=== PATIENT | male | born 1955 | race Caucasian/White ===

== ENCOUNTER → 2016-11-11 | Outpatient (CLI) | payer OTHER ==
[~2016-11-11] MED LIST: None at this Time
== END | disposition home or self-care (01) ==
LOC: STAR 12:38
PROVIDERS: ATTEND Orthopaedic Surgery
DX: Z01.818 Encounter for other preprocedural examination (principal); M17.12 Unilateral primary osteoarthritis, left knee
CPT/HCPCS: 81003; 87081; 93005

== ENCOUNTER 2016-11-17 15:00 | Inpatient (IN) | payer OTHER ==
[~2016-11-17] VITALS: Ht 182.9 cm; Wt 97.6 kg
[2016-11-22] MEDS ORDERED: VANCOMYCIN PMX 1GM/200ML 200 ML IV STA (10:03)
[2016-11-22] MEDS ORDERED: AMLO2.5T PO (10:08)
[2016-11-22] MEDS ORDERED: LIDOCAINE 1%, 2ML ONE (10:14)
[2016-11-22] MEDS ORDERED: hydrALAzine 20 MG/ML, 1ML IV PRN (10:30)
[2016-11-22] MEDS ORDERED: ALBUTEROL SULFATE 2.5 MG/3 ML NPPB PRN (10:30)
[2016-11-22] MEDS ORDERED: HYDROmorphone 1 MG/ML, 1ML IV PRN (10:30)
[2016-11-22] MEDS ORDERED: PROMETHAZINE 25 MG/ML, 1ML IV PRN (10:30)
[2016-11-22] MEDS ORDERED: METOPROLOL 1 MG/ML, 5ML IV PRN (10:30)
[2016-11-22] MEDS ORDERED: EPHEDRINE 50 MG/ML, 1ML IVPush PRN (10:30)
[2016-11-22] MEDS ORDERED: OXYcodone 5 MG/5 ML ORAL.SOL UDC PO PRN (10:30)
[2016-11-22] MEDS ORDERED: LIDOCAINE 1%, 2ML SQ PRN (10:30)
[2016-11-22] MEDS ORDERED: MEPERIDINE/PF 25MG/0.5ML IVPush PRN (10:30)
[2016-11-22] MEDS ORDERED: ACETAMINOPHEN 325 MG TABLET PO PRN (10:30)
[2016-11-22] MEDS ORDERED: LABETALOL 5MG/ML, 20ML IV PRN (10:30)
[2016-11-22] MEDS ORDERED: FENTANYL PF 100 MCG/2ML IV PRN (10:30)
[2016-11-22] MEDS ORDERED: ONDANSETRON 2MG/ML, 2ML IVPush PRN (10:30)
[2016-11-22] MEDS ORDERED: LIDOCAINE 0.5%-EPI 1:200K, 50ML ONE (10:52)
[2016-11-22] MEDS ORDERED: TRANEXAMIC ACID 100 MG/ML, 10ML ONE (10:52)
[2016-11-22] MEDS ORDERED: ROPIvacaine/PF 0.5%, 30 ML ONE (10:52)
[2016-11-22] MEDS ORDERED: LACTATED RINGERS 1,000 ML IV SCH (11:00)
[2016-11-22] MEDS ORDERED: FENTANYL PF 250 MCG/5ML ONE (12:10)
[2016-11-22] MEDS ORDERED: MIDAZOLAM 1 MG/ML, 2ML ONE ×2 (12:10→12:11)
[2016-11-22] MEDS ORDERED: PROPOFOL 10 MG/ML, 20ML ONE (13:24)
[2016-11-22] MEDS ORDERED: GLYCOPYRROLATE 0.2MG/1ML ONE (13:24)
[2016-11-22] MEDS ORDERED: DEXAMETHASONE 4 MG/ML, 1ML ONE (13:24)
[2016-11-22] MEDS ORDERED: ONDANSETRON 2MG/ML, 2ML ONE (13:24)
[2016-11-22] MEDS ORDERED: ROCURONIUM 10 MG/ML ONE (13:24)
[2016-11-22] MEDS ORDERED: NEOSTIGMINE 1 MG/ML, 10ML ONE (13:24)
[2016-11-22] MEDS ORDERED: CEFAZOLIN 1,000 MG ONE (13:24)
[2016-11-22] MEDS ORDERED: ONDANSETRON 4 MG TABLET PO PRN (13:30)
[2016-11-22] MEDS: HYDROcodone/APAP 10/325 MG TABLET PO SCH ×3 (13:30→20:28)
[2016-11-22] MEDS ORDERED: ACETAMINOPHEN 650 MG/20.3 ML UDC PO PRN (13:30)
[2016-11-22] MEDS ORDERED: DIAZEPAM 5 MG TABLET PO PRN (13:30)
[2016-11-22] MEDS ORDERED: morphine SULFATE 10 MG/ML, 1ML IV PRN (13:30)
[2016-11-22] MEDS ORDERED: PROMETHAZINE 12.5 MG SUPP PR PRN (13:30)
[2016-11-22] MEDS ORDERED: MAGNESIUM HYDROXIDE 8%, 30ML UDC PO PRN (13:30)
[2016-11-22] MEDS ORDERED: BISACODYL 10 MG SUPP PR PRN (13:30)
[2016-11-22] MEDS ORDERED: ONDANSETRON 2MG/ML, 2ML IV PRN (13:30)
[2016-11-22] MEDS ORDERED: SENNA/DOCUSATE TABLET PO PRN (13:30)
[2016-11-22] MEDS ORDERED: SCOPOLAMINE PATCH, 1.5MG PATCH.TD72 TD SCH (13:30)
[2016-11-22] MEDS ORDERED: ACETAMINOPHEN 650 MG/20.3 ML UDC ONE (15:55)
[2016-11-22] MEDS ORDERED: ACETAMINOPHEN 325 MG/10.15 ML UDC ONE (15:55)
[2016-11-22] MEDS ORDERED: OXYcodone 5 MG/5 ML ORAL.SOL UDC ONE (15:55)
[2016-11-22] MEDS: D5%-0.45% NACL 1,000 ML IV SCH ×2 (17:11→21:23)
[2016-11-22 18:52] VITALS: BP 159/78
[2016-11-22] MEDS: DOCUSATE 100 MG CAPSULE PO SCH (20:28)
[2016-11-22] MEDS: CEFAZOLIN PMX 2GM/50ML 50 ML IVPB SCH (21:48)
[2016-11-23 00:13] VITALS: BP 145/74
[2016-11-23] MEDS: HYDROcodone/APAP 10/325 MG TABLET PO SCH ×3 (00:25→11:29)
[2016-11-23 05:23] VITALS: BP 147/72
[2016-11-23] MEDS: D5%-0.45% NACL 1,000 ML IV SCH ×2 (05:23→13:23)
[2016-11-23] MEDS ORDERED: ASPIRIN 325 MG TABLET EC PO SCH (06:00)
[2016-11-23] MEDS: CEFAZOLIN PMX 2GM/50ML 50 ML IVPB SCH (06:15)
[2016-11-23 07:21] VITALS: BP 127/69
[2016-11-23] MEDS ORDERED: AMLODIPINE 2.5 MG TABLET PO SCH (09:00)
[2016-11-23] MEDS: DOCUSATE 100 MG CAPSULE PO SCH (09:04)
[2016-11-23] MEDS ORDERED: KETOROLAC 30 MG/1 ML IV SCH (13:30)
[2016-11-23 13:53] VITALS: BP 147/74
== END 2016-11-23 14:22 | disposition home or self-care (01) | DRG 470 ==
LOC: ORIP 11-22 09:47 → 4NOR 11-22 16:29 → DCLOUNGE 11-23 14:06
PROVIDERS: ADMIT Orthopaedic Surgery; ATTEND Orthopaedic Surgery
PROC: 0SPD04Z Removal of Internal Fixation Device from Left Knee Joint, Open Approach (ICD-10-PCS; 2016-11-22)
PROC: 3E0T3CZ (ICD-10-PCS; 2016-11-22)
PROC: 0SRD0J9 Replacement of Left Knee Joint with Synthetic Substitute, Cemented, Open Approach (ICD-10-PCS; principal; 2016-11-22 12:15)
DX: M17.12 Unilateral primary osteoarthritis, left knee (principal); E78.00 Pure hypercholesterolemia, unspecified; Z90.89 Acquired absence of other organs; Z89.012 Acquired absence of left thumb; Z91.040 Latex allergy status; Z91.048 Other nonmedicinal substance allergy status
CPT/HCPCS: 76000; J0690; J1100; J2250; J2405; J2704; J2710; J2795; J3010; J3370; J3490; J7120

== ENCOUNTER 2016-11-26 11:18 | Inpatient (IN) | payer OTHER ==
[~2016-11-26] VITALS: Ht 182.9 cm; Wt 95.7 kg
[~2016-11-26 11:18] MED LIST changes: +AMLO2.5T PO
[2016-11-26] MEDS ORDERED: ASPI-650 PO (11:51)
[2016-11-26] MEDS ORDERED: HYDR-3144 PO (11:51)
[2016-11-26 12:11] LABS: PATH.CAST-FLAG NOT PRESENT; SPERM-FLAG NOT PRESENT; SRC-FLAG NOT PRESENT; XTAL-FLAG NOT PRESENT; YLC-FLAG NOT PRESENT
[2016-11-26 12:44] LABS: HEMOGLOBIN 9.5 g/dL (13.7-18.0); WHITE BLOOD COUNT 9.5 x10^3/uL (3.4-10)
[2016-11-26 12:55] LABS: BLOOD UREA NITROGEN 36 mg/dL (7-18)
[2016-11-26] MEDS ORDERED: SODIUM CHLORIDE 0.9% 1,000 ML IV ONE (13:55)
[2016-11-26] MEDS ORDERED: SODIUM CHLORIDE FLUSH 10ML SYR IVF ONE (14:00)
[2016-11-26] MEDS ORDERED: SODIUM CHLORIDE FLUSH 10ML SYR IVF PRN (14:30)
[2016-11-26] MEDS ORDERED: HYDROcodone/APAP 10/325 MG TABLET PO PRN (15:00)
[2016-11-26] MEDS ORDERED: morphine SULFATE 10 MG/ML, 1ML IVPush PRN (15:00)
[2016-11-26] MEDS ORDERED: ONDANSETRON 2MG/ML, 2ML IVPush PRN (15:00)
[2016-11-26] MEDS ORDERED: ACETAMINOPHEN 325 MG TABLET PO PRN (15:00)
[2016-11-26] MEDS ORDERED: POLYETHYLENE GLYCOL 17 GM PACKET PO PRN (15:00)
[2016-11-26] MEDS ORDERED: DOCUSATE 100 MG CAPSULE PO PRN (15:00)
[2016-11-26] MEDS ORDERED: LABETALOL 5MG/ML, 20ML IVPush PRN (15:30)
[2016-11-26] MEDS ORDERED: hydrALAzine 20 MG/ML, 1ML IV PRN (15:30)
[2016-11-26] MEDS ORDERED: TAMSULOSIN 0.4 MG CAP.ER.24H ONE (15:32)
[2016-11-26] MEDS: TAMSULOSIN 0.4 MG CAP.ER.24H PO SCH (15:33)
[2016-11-26 20:00] VITALS: BP 152/74
[2016-11-26] MEDS: SODIUM CHLORIDE 0.9% 1,000 ML IV SCH (20:12)
[2016-11-27] MEDS ORDERED: TEMAZEPAM 15 MG CAPSULE PO PRN
[2016-11-27 03:15] VITALS: BP 152/82
[2016-11-27] MEDS: SODIUM CHLORIDE 0.9% 1,000 ML IV SCH (04:01)
[2016-11-27 05:28] LABS: BLOOD UREA NITROGEN 19 mg/dL (7-18)
[2016-11-27] MEDS: TAMSULOSIN 0.4 MG CAP.ER.24H PO SCH (08:05)
[2016-11-27 08:21] VITALS: BP 180/81
[2016-11-27] MEDS ORDERED: SENNA/DOCUSATE TABLET PO SCH (09:00)
[2016-11-27] MEDS ORDERED: ASPIRIN 325 MG TABLET EC PO SCH ×2 (09:00→21:00)
[2016-11-27 10:30] VITALS: BP 162/80
[2016-11-27] MEDS ORDERED: amlodipine PO (10:49)
[2016-11-27] MEDS ORDERED: TAMS-11 PO (13:33)
[2016-11-27 15:26] VITALS: BP 168/72
== END 2016-11-27 16:46 | disposition home or self-care (01) | DRG 699 ==
LOC: ED 12:49 → EDIP 14:04 → 3NE 16:40
PROVIDERS: ADMIT Family Medicine; ATTEND Family Medicine
DX: N13.9 Obstructive and reflux uropathy, unspecified (principal); N17.9 Acute kidney failure, unspecified; N13.30 Unspecified hydronephrosis; D64.9 Anemia, unspecified; I10 Essential (primary) hypertension; M19.90 Unspecified osteoarthritis, unspecified site; R31.0 Gross hematuria; Z82.3 Family history of stroke; Z82.49 Family history of ischemic heart disease and other diseases of the circulatory system; Z87.442 Personal history of urinary calculi
CPT/HCPCS: 36415; 51702; 74176; 80048; 81001; 82040; 83735; 85025; 99285; J7030

== ENCOUNTER 2020-12-24 18:50 | Emergency (ER) | payer OTHER ==
[~2020-12-24] VITALS: Ht 182.9 cm; Wt 95.7 kg
[~2020-12-24 18:50] MED LIST changes: -AMLO2.5T PO; +AMLO2.5T5 PO; +ASPI325T20 PO; +HYDR1TAB53 PO; +TAMS-11 PO; +amlodipine PO
[2020-12-24] MEDS ORDERED: PLEASE ENTER HEIGHT AND WEIGHT MC SCH (19:30)
[2020-12-24] MEDS ORDERED: DIPH,PERTUSS(ACELL),TET VAC/PF 0.5 ML IM-VACC ONE ×2 (19:30→23:02)
[2020-12-24] MEDS ORDERED: LIDOCAINE 1%, 10ML INFIL ONE (19:30)
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
--- NOTE | 2020-12-24 22:59 | NUR ---
ERP AT BEDSIDE
[2020-12-24] MEDS ORDERED: LIDOCAINE-MPF 1%, 5ML ONE (23:01)
[2020-12-24] MEDS ORDERED: CEPHALEXIN 500 MG CAPSULE ONE (23:17)
[2020-12-24 23:30] VITALS: BP 182/88
[2020-12-24] MEDS ORDERED: CEPHALEXIN 500 MG CAPSULE PO ONE (23:30)
== END 2020-12-24 23:36 | disposition home or self-care (01) ==
LOC: ED 23:33
DX: S61.210A Laceration without foreign body of right index finger without damage to nail, initial encounter (principal); W26.0XXA Contact with knife, initial encounter; Y93.89 Activity, other specified; Y92.89 Other specified places as the place of occurrence of the external cause; Y99.8 Other external cause status
CPT/HCPCS: 90471; 90715; 99283